=== PATIENT | female | born 1955 ===

== ENCOUNTER 2018-03-10 21:50 | Emergency (ER) | payer MEDICARE, MEDICAID ==
[2018-03-10 22:04] VITALS: BP 132/83; PULSE 70; RESP 20; TEMP 98.2; O2SAT 98
--- NOTE | 2018-03-10 22:49 | C.PDOC ---
History Of Present Illness 62 year old female complains of left sided chest tightness, left shoulder pain since yesterday. She reports cough for one week. Additionally reports yesterday feeling tightness in chest worse on left side under rib and worsened with deep inspiration lasted few seconds. She states shoulder pain is aching and worsened with movement, admits to moving furniture around in her home. Today had no similar episodes but told her daughter who brought her to ED for evaluation. Denies any current chest pain, SOB, numbness, weakness. Time Seen by Provider: 03/10/18 22:18 Chief Complaint (Nursing): Upper Extremity Problem/Injury History Per: Patient History/Exam Limitations: no limitations Onset/Duration Of Symptoms: Days Current Symptoms Are (Timing): Still Present Recent travel outside of the [place]: No Past Medical History Reviewed: Historical Data, Nursing Documentation, Vital Signs Vital Signs: Last Vital Signs Temp 98.2 F 03/10/18 21:59 Pulse 70 03/10/18 21:59 Resp 20 03/10/18 23:20 BP 132/83 03/10/18 21:59 Pulse Ox 98 03/10/18 23:16 - Medical History PMH: HTN Surgical History: Cholecystectomy Family History: States: Unknown Family Hx - Social History Hx Alcohol Use: No Hx Substance Use: No - Immunization History Hx Tetanus Toxoid Vaccination: No Hx Influenza Vaccination: No Hx Pneumococcal Vaccination: No Review Of Systems Constitutional: Negative for: Fever, Chills Cardiovascular: Negative for: Chest Pain Respiratory: Positive for: Cough. Negative for: Shortness of Breath Musculoskeletal: Positive for: Shoulder Pain, Other (Chest wall pain) Neurological: Negative for: Weakness, Numbness Physical Exam - Physical Exam Appears: Non-toxic Skin: Normal Color, Warm, Dry Head: Atraumatic, Normacephalic Eye(s): bilateral: Normal Inspection Oral Mucosa: Moist Chest: Symmetrical, Tenderness (Left chest wall) Cardiovascular: Rhythm Regular Respiratory: Normal Breath Sounds, No Rales, No Rhonchi, No Wheezing Back: No Vertebral Tenderness, Paraspinal Tenderness (left trapezius muscle) Extremity: Normal ROM (x4), Tenderness (Left lateral shoulder), No Deformity, No Swelling Pulses: Left Radial: Normal, Right Radial: Normal Neurological/Psych: Oriented x3, Normal Speech, Normal Motor, Normal Sensation ED Course And Treatment ECG: Interpreted By Me, Viewed By Me ECG Rhythm: Sinus Rhythm ECG Interpretation: Normal Interpretation Of ECG: normal axis and no ST-T changes Rate From EC O2 Sat by Pulse Oximetry: 98 Medical Decision Making Medical Decision Making: Impression: left shoulder pain, chest discomfort Plan: * EKG * CXR * Motrin Progress: EKG is normal sins rhythm at 72 bpm with normal axis and no ST-T changes CXR shows no active disease On re-evaluation patient sitting comfortably in chair in no distress. She denies any chest pain or SOB. Vital signs are stable. Based on history and exam , clinical presentation likely musculoskeletal and very low suspicion for cardiac etiology. Patient advised to take analgesic and follow up with PMD or return to hospital if symptoms persist or worsen Disposition Counseled Patient/Family Regarding: Diagnosis, Need For Followup, Rx Given - Disposition Referrals: Cinthia Ward MD [Medical Doctor] - Disposition: HOME/ ROUTINE Disposition Time: 23:20 Condition: GOOD Additional Instructions: Your xray was normal, no infection or fractures. Please apply ice to area 15 minutes three times a day. Take Motrin as needed for pain every 6 hours, with food to not upset stomach. Follow up with your primary medical doctor or clinic in 2-5 days for further evaluation. Prescriptions: Ibuprofen [Motrin] 600 mg PO Q8 #30 tab Instructions: Costochondritis (DC) Forms: [employer] (Lao) Print Language: IRISH - POA Present On Arrival: None - Clinical Impression Clinical Impression: Musculoskeletal chest pain, Pleuritic chest pain - PA / PSYCHIC READER / Resident Statement MD/DO has reviewed & agrees with the documentation as recorded. - Scribe Statement The provider has reviewed the documentation as recorded by the Scribjoseph Barrera
--- NOTE | 2018-03-11 10:40 | RAD ---
HISTORY: cough and pain COMPARISON: No prior. TECHNIQUE: Chest PA and lateral FINDINGS: LUNGS: No active pulmonary disease. PLEURA: No significant pleural effusion identified. No pneumothorax apparent. CARDIOVASCULAR: Normal. OSSEOUS STRUCTURES: No significant abnormalities. VISUALIZED UPPER ABDOMEN: Normal. OTHER FINDINGS: None. IMPRESSION: No active disease.
--- NOTE | 2018-03-11 15:42 | CARD ---
APPROVED REPORT EKG Measurement Heart [id number] <Conclusion> Normal sinus rhythm Nonspecific ST and T wave abnormality Abnormal ECG
== END 2018-03-10 23:20 | disposition home or self-care (01) ==
LOC: C.ER 21:50
DX: R07.81 Pleurodynia (principal)